=== PATIENT | male | born 1980 | race African-American/Black ===

== ENCOUNTER 2021-03-22 18:02 | Emergency (ER) | payer OTHER ==
[2021-03-22 19:59] VITALS: BP 173/110; PULSE 73; TEMP 98; BMI 26.4
== END 2021-03-22 21:51 | disposition home or self-care (01) ==
LOC: JERFT 18:02 → JER 18:02
DX: Z11.52 Encounter for screening for COVID-19 (principal)
CPT/HCPCS: 99285-25; C9803; U0003; U0005